=== PATIENT | female | born 1960 | race African-American/Black ===

== ENCOUNTER 2018-08-24 13:21 | Emergency (ER) | payer BC ==
[2018-08-24] MEDS ORDERED: DEXAMETHASONE 10 MG/ML VIAL ONE (13:49)
[2018-08-24] MEDS ORDERED: DIPHENHYDRAMINE 50 MG/ML VIAL ONE (13:49)
[2018-08-24] MEDS ORDERED: FAMOTIDINE 20 MG/2 ML VIAL IV ONE (13:50)
--- NOTE | 2018-08-24 15:51 | ER ---
Nurse's Notes [facility] Name: aMren Saleh Age: 58 yrs Sex: Female : 1960 Arrival Date: 08/24/2018 Time: 13:24 Bed 13 Private MD: Diagnosis: Allergy to other foods Presentation: 08/24 13:30 Presenting complaint: Patient states: I had some stuffed crab about two days ago, then sg my face broke out in a rash and now my hands are swollen and painful. Transition of care: patient was not received from another setting of care. Onset: The symptoms/episode began/occurred gradually. Anaphylaxis evaluation, the patient reports or I have noted the following symptoms which indicate a significant risk of anaphylaxis:. Onset of symptoms was August 24, 2018. Risk Assessment: Do you want to hurt yourself or someone else? Patient reports no desire to harm self or others. Initial Sepsis Screen: Does the patient meet any 2 criteria? No. Patient's initial sepsis screen is negative. Does the patient have a suspected source of infection? No. Patient's initial sepsis screen is negative. Care prior to arrival: None. 13:30 Method Of Arrival: Ambulatory sg 13:30 Acuity: SEAN 3 sg Historical: - Allergies: 13:31 No Known Allergies; sg - PMHx: 13:31 Hypertension; sg - Immunization history:: Adult Immunizations not up to date. - Social history:: Smoking status: Patient/guardian denies using tobacco. - Ebola Screening: : Patient negative for fever greater than or equal to 101.5 degrees Fahrenheit, and additional compatible Ebola Virus Disease symptoms Patient denies exposure to infectious person Patient denies travel to an Ebola-affected area in the 21 days before illness onset No symptoms or risks identified at this time. Screenin:30 Abuse screen: Denies threats or abuse. Nutritional screening: No deficits noted. rb1 Tuberculosis screening: No symptoms or risk factors identified. Fall Risk None identified. Assessment: 13:30 General: Appears in no apparent distress. comfortable, Behavior is calm, cooperative. rb1 Pain: Complains of pain in bilateral hands Pain currently is 8 out of 10 on a pain scale. Pain began 2-3 days ago. Neuro: Level of Consciousness is awake, alert, obeys commands, Oriented to person, place, time, situation. Cardiovascular: Capillary refill < 3 seconds is brisk in bilateral fingers. Respiratory: Airway is patent Respiratory effort is even, unlabored, Respiratory pattern is regular, symmetrical, Breath sounds are clear bilaterally. GI: No signs and/or symptoms were reported involving the gastrointestinal system. : No signs and/or symptoms were reported regarding the genitourinary system. Derm: Rash noted that is raised, on face. Musculoskeletal: Reports swelling in her face. Pt. reports that her cheeks look rae than normal. 14:30 Reassessment: Patient appears in no apparent distress at this time. No changes from rb1 previously documented assessment. 15:30 Reassessment: Patient appears in no apparent distress at this time. Patient and/or rb1 family updated on plan of care and expected duration. Pain level reassessed. Patient is alert, oriented x 3, equal unlabored respirations, skin warm/dry/pink. Patient states feeling better. Vital Signs: 13:31 Pulse 106; Resp 17; Temp 97.3; Pulse Ox 97% ; Pain 10/10; sg 14:46 BP 137 / 83; Pulse 71; Resp 16; Temp 97.4(O); Pulse Ox 97% on R/A; mh5 15:30 BP 157 / 86; Pulse 72; Resp 18; Temp 97.9(O); Pulse Ox 99% on R/A; Pain 6/10; rb1 ED Course: 13:24 Patient arrived in ED. tw3 13:29 Davion Graham PA is PHCP. [facility] 13:29 Matthew Mcdonough MD is Attending Physician. [facility] 13:30 Patient has correct armband on for positive identification. Bed in low position. Call rb1 light in reach. Side rails up X 1. Pulse ox on. NIBP on. Warm blanket given. 13:31 Triage completed. sg 13:31 Arm band placed on. sg 13:34 Radha Kwok, RN is Primary Nurse. rb1 13:44 Inserted saline lock: 22 gauge in right antecubital area, using aseptic technique. rb1 16:07 No provider procedures requiring assistance completed. IV discontinued, intact, rb1 bleeding controlled, No redness/swelling at site. Pressure dressing applied. Administered Medications: 13:45 Drug: diphenhydrAMINE 12.5 mg Route: IVP; Site: right antecubital; rb1 14:00 Follow up: Response: No adverse reaction rb1 13:45 Drug: Pepcid 20 mg Route: IVP; Site: right antecubital; rb1 14:00 Follow up: Response: No adverse reaction rb1 13:45 Drug: Decadron - Dexamethasone 10 mg Route: IVP; Site: right antecubital; rb1 14:00 Follow up: Response: No adverse reaction rb1 Outcome: 15:50 Discharge ordered by . lakeshia 16:07 Discharged to home ambulatory, with significant other. rb1 16:07 Condition: stable 16:07 Discharge instructions given to patient, Instructed on discharge instructions, follow up and referral plans. medication usage, Demonstrated understanding of instructions, follow-up care, medications, Prescriptions given X 1. 16:08 Patient left the ED. rb1 Signatures: Michael Cooley RN RN Davion Saleh PA PA jmm Barber, Rebecca, RN RN rb1 Parul Freedman 5 Allan, Jane tw3
--- NOTE | 2018-08-24 15:51 | EDPHYS ---
Physician Documentation [facility] Name: Maren Saleh Age: 58 yrs Sex: Female : 1960 Arrival Date: 08/24/2018 Time: 13:24 Bed 13 Private MD: ED Physician Matthew Mcdonough HPI: 08/24 13:32 This 58 yrs old Black Female presents to ER via Ambulatory with complaints of Allergic jmm Reaction. 13:32 The patient presents with rash. Onset: The symptoms/episode began/occurred suddenly, 9 jmm day(s) ago. Associated signs and symptoms: Pertinent positives: swelling, Pertinent negatives: shortness of breath. This is a 58 year old female with a history of htn that presents to the ED with complaints of facial rash, swelling to her hands, and pruritic rash beginning 9 days ago after eating crab. Patient states she is taking benadryl which transiently relieved symptoms. Patient denies shortness of breath, denies vomiting. . Historical: - Allergies: 13:31 No Known Allergies; sg - PMHx: 13:31 Hypertension; sg - Immunization history:: Adult Immunizations not up to date. - Social history:: Smoking status: Patient/guardian denies using tobacco. - Ebola Screening: : Patient negative for fever greater than or equal to 101.5 degrees Fahrenheit, and additional compatible Ebola Virus Disease symptoms Patient denies exposure to infectious person Patient denies travel to an Ebola-affected area in the 21 days before illness onset No symptoms or risks identified at this time. ROS: 13:32 Constitutional: Negative for fever, chills, and weight loss, Cardiovascular: Negative jmm for chest pain, palpitations, and edema, Respiratory: Negative for shortness of breath, cough, wheezing, and pleuritic chest pain. 13:32 Skin: Positive for rash. 13:32 All other systems are negative. Exam: 13:32 Constitutional: This is a well developed, well nourished patient who is awake, alert, jmm and in no acute distress. 13:32 Neck: Trachea midline, Supple Chest/axilla: Normal chest wall appearance and motion. 13:32 Head/face: papular rash noted to the forehead and chin. 13:32 ENT: no pharyngeal edema appreciated. 13:32 Cardiovascular: Rate: normal, Rhythm: regular. 13:32 Respiratory: the patient does not display signs of respiratory distress, Respirations: normal, Breath sounds: are clear throughout. 13:32 Abdomen/GI: Inspection: abdomen appears normal, Bowel sounds: normal. 13:32 Back: ROM is normal. 13:32 Musculoskeletal/extremity: ROM: intact in all extremities. 13:32 Musculoskeletal/extremity: mild swelling noted to the hands bilaterally. 13:32 Skin: papular lesions noted to the forehead and the chin. 13:32 Neuro: Orientation: appropriate for stated age, Mentation: is normal, Memory: is normal. 13:32 Psych: Behavior/mood is pleasant, cooperative. Vital Signs: 13:31 Pulse 106; Resp 17; Temp 97.3; Pulse Ox 97% ; Pain 10/10; sg 14:46 BP 137 / 83; Pulse 71; Resp 16; Temp 97.4(O); Pulse Ox 97% on R/A; mh5 15:30 BP 157 / 86; Pulse 72; Resp 18; Temp 97.9(O); Pulse Ox 99% on R/A; Pain 6/10; rb1 MDM: 13:32 Patient medically screened. [facility] 15:48 Data reviewed: vital signs, nurses notes. Counseling: I had a detailed discussion with lakeshia the patient and/or guardian regarding: the historical points, exam findings, and any diagnostic results supporting the discharge/admit diagnosis, the need for outpatient follow up, to return to the emergency department if symptoms worsen or persist or if there are any questions or concerns that arise at home. ED course: Decreased swelling noted to the hands. Patient states she feels much better. No pharyngeal edema appreciated on reevaluation. Patient is advised to follow up with PCP for reevaluation. patient was otherwise given strict return precautions. Patient understood and agrees with the plan of care. . 18 13:33 Order name: Saline Lock; Complete Time: 13:53 [facility] Administered Medications: 13:45 Drug: diphenhydrAMINE 12.5 mg Route: IVP; Site: right antecubital; rb1 14:00 Follow up: Response: No adverse reaction rb1 13:45 Drug: Pepcid 20 mg Route: IVP; Site: right antecubital; rb1 14:00 Follow up: Response: No adverse reaction rb1 13:45 Drug: Decadron - Dexamethasone 10 mg Route: IVP; Site: right antecubital; rb1 14:00 Follow up: Response: No adverse reaction rb1 Disposition: 16:15 Co-signature as Attending Physician, Matthew Mcdonough MD. Disposition: 08/24/18 15:50 Discharged to Home. Impression: Allergy to other foods. - Condition is Stable. - Discharge Instructions: Allergies, Adult. - Prescriptions for Prednisone 20 mg Oral Tablet - take 3 tablet by ORAL route once daily for 5 days; 15 tablet. - Medication Reconciliation Form, Thank You Letter, Antibiotic Education, Prescription Opioid Use form. - Follow up: Private Physician; When: 2 - 3 days; Reason: Recheck today's complaints, Continuance of care, Re-evaluation by your physician. Signatures: Michael Cooley RN RN Davion Saleh PA PA jmm Barber, Rebecca, RN RN rb1 Sharonda, MD GILMA Castro Corrections: (The following items were deleted from the chart) 16:08 15:50 08/24/2018 15:50 Discharged to Home. Impression: Allergy to other foods. rb1 Condition is Stable. Forms are Medication Reconciliation Form, Thank You Letter, Antibiotic Education, Prescription Opioid Use. Follow up: Private Physician; When: 2 - 3 days; Reason: Recheck today's complaints, Continuance of care, Re-evaluation by your physician. lakeshia
== END 2018-08-24 16:08 | disposition home or self-care (01) ==
LOC: ER 13:21
DX: R21 Rash and other nonspecific skin eruption (principal); I10 Essential (primary) hypertension; Z91.018 Allergy to other foods
CPT/HCPCS: 96374; 96375; 99284; J1100

== ENCOUNTER 2024-03-19 10:40 | Emergency (ER) | payer BC, OTHER ==
--- OUTSIDE RECORDS SUMMARY | 2024-03-19 10:44 | XMS REPORT | Continuity of Care Document ---
Author Name Unknown Address [address] [facility] [address] [place] [address] [facility] thconnect Address [address] [facility] [address] [place] [address] Care Team Providers Care Arborist Climber Name Role Phone MARITZA TANNER Primary Care Physician SALLY Chun Attending Clinician Unavailable SALLY POZO Attending Clinician Unavailable SCARLET BARBOSA Attending Clinician Unavailable SCARLET BARBOSA Attending Clinician Unavailable TACHO HAIR Attending Clinician Unavailab MARITZA Shepard Attending Clinician UnavailMARITZA Holt Attending Clinician UnavailTAMMY Harmon Attending Clinician UnavailMaritza Rodriguez MD Attending Clinician [phone] Linda Perez MD Attending Clinician [phone] LINDA PEREZ Attending Clinician Unavailable GISELLE ALICIA Attending Clinician Unavaila GISELLE Chao Attending Clinician Unavaila Shruthi Davison Attending Clinician Karolina Isabel Attending Clinician [phone] Sally Pozo MD Attending Clinician 2, [facility] Attending Clinician Unavailable 2, [facility] Attending Clinician Unavailable Doctor Unassigned, [place] Attending Clinician U WILLIAM Barrera Attending Clinician Unavailable MARCY REEVES Attending Clinician Unavailarron escalante Payers Payer Name Policy Type Policy Number Effective Date Expirati on Date Source [employer] MEDICARE ADVANTAGE [id number] 2024 00:00:00 [facility] OUT OF STATE [id number] 2018 00:00:00 Problems Condition Name Condition Details Condition Category Status Onset Date Resolution Date Last Treatment Date Treating Clinician Comments Source At risk for falls At risk for falls Disease Active 2023-04 00:00: 00 [facility] Unspecifie d abnormalit ies of gait and mobility Unspecifie d abnormalit ies of gait and mobility Disease Active 2023-04 00:00: 00 [facility] Preop cardiovasc ular exam Preop cardiovasc ular exam Disease Active 2023-04 00:00: 00 [facility] Morbid obesity Morbid obesity Disease Active 2023-04 00:00: 00 [facility] Hyperlipid emia, unspecifie d hyperlipid emia type Hyperlipid emia, unspecifie d hyperlipid emia type Disease Active 2023-04 00:00: 00 [facility] Family history of early CAD Family history of early CAD Disease Active 2023-04 00:00: 00 [facility] Edema, unspecifie d type Edema, unspecifie d type Disease Active 2023-04 00:00: 00 [facility] Snores Snores Disease Active 2023-04 00:00: 00 [facility] Hip pain Hip Pain Problem Active 11-15 00:00: 00 [facility] Bilateral hip joint pain Bilateral Hip Joint Pain Problem Active 11-15 00:00: 00 [facility] Encounter for screening mammogram for malignant neoplasm of breast Encounter for screening mammogram for malignant neoplasm of breast Disease Active 12-04 00:00: 00 [facility] Peanut allergy Peanut allergy Disease Active 10-31 00:00: 00 [facility] Gout Gout Disease Active 10-14 00:00: 00 [facility] 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 Active 10-14 00:00: 00 [facility] Hyperchole sterolemia Hyperchole sterolemia Disease Active 10-14 00:00: 00 [facility] Anemia Anemia Disease Active 10-14 00:00: 00 [facility] Shellfish allergy Shellfish allergy Disease Active 10-10 00:00: 00 [facility] Essential hypertensi on Essential hypertensi on Disease Active [facility] Prediabete s Prediabete s Disease Active [facility] Allergies, Adverse Reactions, Alerts Allergy Name Allergy Type Status Severity Reaction(s) Onset Date Inactive Date Treating Clinician Comments Source Peanut Propensi ty to adverse reaction s Active Rash 10-31 00:00: 00 [facility] PEANUT DRUG INGREDI Active Rash 10-31 00:00: 00 [facility] Shellfis h Derived Propensi ty to adverse reaction s Active Unknown - See comments 10-10 00:00: 00 [facility] SHELLFIS H DERIVED DRUG INGREDI Active Unknown-Cmnt 10-10 00:00: 00 [facility] Social History Social Habit Start Date Stop Date Quantity Comments Source Gender identity [facility] Sexual orientation [facility] Alcoholic beverage intake 2024-02-28 00:00:00 2024-02-28 00:00:00 Lifetime non-drinker (finding) [facility] Alcohol intake 2022-12-18 00:00:00 2022-12-18 00:00:00 Lifetime non-drinker (finding) [facility] Tobacco use and exposure 2022-12-04 00:00:00 2022-12-04 00:00:00 Smokeless tobacco non-user [facility] History of Social function 2022-12-04 00:00:00 2022-12-04 00:00:00 [facility] Sex assigned at 1960 00:00:00 1960 00:00:00 [facility] Smoking Status Start Date Stop Date Source Never smoked tobacco [facility] Medications Ordered Medication Name Filled Medication Name Start Date Stop Date Current Medication? Ordering Clinician Indication Dosage Frequency Signature (SIG) Comments Components Source allopurinoL 100 mg tablet 2023-04 00:00: 00 Yes [id number] 100mg Take 1 tablet by mouth in the morning. [facility] Nitrofurant oin&Nit. Macrocryst 100 mg capsule 2023-04 00:00: 00 03-09 05:59 :00 Yes [id number] 100mg Take 1 capsule by mouth in the morning and 1 capsule in the evening. Do all this for 5 days. [facility] nystatin 100,000 unit/gram powder 2023-04 00:00: 00 Yes [id number] Apply to area(s) 2 (two) times daily. [facility] rosuvastati n 20 mg tablet 2023-04 00:00: 00 Yes [id number] 20mg Take 1 tablet by mouth in the morning. [facility] amLODIPine 10 mg tablet 12-18 00:00: 00 Yes [id number] 10mg Take 1 tablet by mouth in the morning. [facility] allopurinoL 100 mg tablet 12-18 00:00: 00 03-03 00:00 :00 No [id number] 100mg Take 1 tablet by mouth in the morning. [facility] rosuvastati n 20 mg tablet 12-18 00:00: 00 02-27 00:00 :00 No [id number] 20mg Take 1 tablet by mouth in the morning. [facility] benzonatate (TESSALON PERLES) 100 mg capsule 12-18 00:00: 00 02-27 00:00 :00 No [id number] 100mg Take 1 capsule by mouth every 8 (eight) hours as needed for Cough. [facility] EPINEPHrine 0.3 mg/0.3 mL injection 12-04 08:15: 20 Yes epinephrin e 0.3 mg/0.3 mL injection, auto-injec tor [facility] EPINEPHrine 0.3 mg/0.3 mL injection 2018-04 13:41: 17 Yes epinephrin e 0.3 mg/0.3 mL injection, auto-injec [facility] lisinopril 20 mg tablet 2018-04 00:00: 00 Yes [id number] 20mg Take 1 tablet by mouth daily. [facility] betamethaso ne dipropionat e 0.05 % cream 2018-04 00:00: 00 02-27 00:00 :00 No [id number] Apply to area(s) 2 (two) times daily. [facility] allopurinol 100 mg tablet 2018-04 00:00: 00 12-18 00:00 :00 No [id number] 100mg Take 1 tablet by mouth daily. [facility] amlodipine 5 mg tablet TAKE ONE (1) TABLET BY MOUTH IN THE MORNING. amlodipine 5 mg tablet TAKE ONE (1) TABLET BY MOUTH IN THE MORNING. No amlodipine 5 mg tablet TAKE ONE (1) TABLET BY MOUTH IN THE MORNING. [facility] doxycycline hyclate 100 mg tablet TAKE ONE (1) TABLET BY MOUTH IN THE MORNING AND 1 TABLET IN THE EVENING. DO ALL THIS FOR 7 DAYS. doxycycline hyclate 100 mg tablet TAKE ONE (1) TABLET BY MOUTH IN THE MORNING AND 1 TABLET IN THE EVENING. DO ALL THIS FOR 7 DAYS. No doxycyclin e hyclate 100 mg tablet TAKE ONE (1) TABLET BY MOUTH IN THE MORNING AND 1 TABLET IN THE EVENING. DO ALL THIS FOR 7 DAYS. [facility] metformin ER 500 mg tablet,exte nded release 24 hr TAKE TWO (2) TABLETS BY MOUTH AT BEDTIME FOR 7 DAYS, THEN 2 TABLETS 2 (TWO) TIMES DAILY FOR 90 DAYS. metformin ER 500 mg tablet,exte nded release 24 hr TAKE TWO (2) TABLETS BY MOUTH AT BEDTIME FOR 7 DAYS, THEN 2 TABLETS 2 (TWO) TIMES DAILY FOR 90 DAYS. No metformin ER 500 mg tablet,ext ended release 24 hr TAKE TWO (2) TABLETS BY MOUTH AT BEDTIME FOR 7 DAYS, THEN 2 TABLETS 2 (TWO) TIMES DAILY FOR 90 DAYS. [facility] prednisone 20 mg tablet TAKE 2 TABLETS BY MOUTH IN THE MORNING FOR 5 DAYS. prednisone 20 mg tablet TAKE 2 TABLETS BY MOUTH IN THE MORNING FOR 5 DAYS. No prednisone 20 mg tablet TAKE 2 TABLETS BY MOUTH IN THE MORNING FOR 5 DAYS. [facility] rosuvastati n 5 mg tablet TAKE ONE (1) TABLET BY MOUTH IN THE MORNING. rosuvastati n 5 mg tablet TAKE ONE (1) TABLET BY MOUTH IN THE MORNING. No rosuvastat in 5 mg tablet TAKE ONE (1) TABLET BY MOUTH IN THE MORNING. [facility] Immunizations Ordered Immunization Name Filled Immunization Name Date Status Comments Source Pneumococcal 20 Conjugate, PCV20 (Prevnar 20) 2024-02-28 00:00:00 Completed [facility] Influenza, adjuvanted, trivalent, PF (FLUAD) 2024-02-28 00:00:00 Completed SARS-COV-2 COVID-19 BELEN/J&J VACCINE 2020-07-03 00:00:00 Completed [facility] SARS-COV-2 COVID-19 BELEN/J&J VACCINE 2020-07-03 00:00:00 Completed [facility] SARS-COV-2 COVID-19 BELEN/J&J VACCINE 2020-07-03 00:00:00 Completed [facility] SARS-COV-2 COVID-19 BELEN/J&J VACCINE 2020-07-03 00:00:00 Completed [facility] SARS-COV-2 COVID-19 BELEN/J&J VACCINE 2020-07-03 00:00:00 Completed [facility] SARS-COV-2 COVID-19 BELEN/J&J VACCINE 2020-07-03 00:00:00 Completed [facility] Vital Signs Vital Name Observation Time Observation Value Comments S jennie Systolic blood pressure 2024-02-28 19:43:00 137 mm[Hg] [facility] Diastolic blood pressure 2024-02-28 19:43:00 73 mm[Hg] [facility] Heart rate 2024-02-28 19:43:00 76 /min [facility] Respiratory rate 2024-02-28 19:43:00 16 /min [facility] Body height 2024-02-28 19:43:00 162.6 cm [facility] Body weight 2024-02-28 19:43:00 129.729 kg [facility] BMI 2024-02-28 19:43:00 49.09 kg/m2 [facility] Oxygen saturation in Arterial blood by Pulse oximetry 2024-02-28 19:43:00 100 /min [facility] Systolic blood pressure 2024-02-28 16:59:00 139 mm[Hg] [facility] Diastolic blood pressure 2024-02-28 16:59:00 74 mm[Hg] [facility] Heart rate 2024-02-28 16:59:00 92 /min [facility] Body temperature 2024-02-28 16:59:00 36.44 [place] [facility] Respiratory rate 2024-02-28 16:59:00 18 /min [facility] Body height 2024-02-28 16:59:00 157.5 cm [facility] Systolic blood pressure 2024-02-28 14:50:00 139 mm[Hg] [facility] Diastolic blood pressure 2024-02-28 14:50:00 74 mm[Hg] [facility] Heart rate 2024-02-28 14:47:00 92 /min [facility] Body temperature 2024-02-28 14:47:00 36.72 [place] [facility] Respiratory rate 2024-02-28 14:47:00 18 /min [facility] Body height 2024-02-28 14:47:00 157.5 cm [facility] Oxygen saturation in Arterial blood by Pulse oximetry 2024-02-28 14:47:00 100 /min [facility] Body Weight 2023-11-16 00:00:00 184 [lb_av] [facility] Height 2023-11-16 00:00:00 63 [in_i] [facility] BMI (Body Mass Index) 2023-11-16 00:00:00 32.6 kg/m2 [facility] Systolic blood pressure 2022-12-18 14:03:00 175 mm[Hg] [facility] Diastolic blood pressure 2022-12-18 14:03:00 100 mm[Hg] [facility] Heart rate 2022-12-18 14:03:00 100 /min [facility] Body temperature 2022-12-18 13:58:00 36.28 [place] [facility] Respiratory rate 2022-12-18 13:58:00 20 /min [facility] Body height 2022-12-18 13:58:00 160 cm [facility] Body weight 2022-12-18 13:58:00 103.375 kg [facility] BMI 2022-12-18 13:58:00 40.37 kg/m2 [facility] Oxygen saturation in Arterial blood by Pulse oximetry 2022-12-18 13:58:00 98 /min [facility] Systolic blood pressure 2022-12-04 13:17:00 155 mm[Hg] [facility] Diastolic blood pressure 2022-12-04 13:17:00 102 mm[Hg] [facility] Heart rate 2022-12-04 13:15:00 97 /min [facility] Body temperature 2022-12-04 13:15:00 36.56 [place] [facility] Body height 2022-12-04 13:15:00 157.5 cm [facility] Body weight 2022-12-04 13:15:00 106.278 kg [facility] BMI 2022-12-04 13:15:00 42.85 kg/m2 [facility] Oxygen saturation in Arterial blood by Pulse oximetry 2022-12-04 13:15:00 97 /min [facility] Procedures Procedure Date / Time Performed Performing Clinician Source TRANSTHORACIC ECHO (TTE) COMPLETE 2024-03-13 22:18:03 Linda Perez [facility] DEXA PERIPHERAL (FOREARM) 2024-03-13 20:23:06 Maritza Tanner [facility] DEXA AXIAL (HIP AND SPINE) 2024-03-13 20:23:06 [facility] 2024-03-01 03:00:00 Noemí Tanner [facility] HB ECG ROUTINE & RHYTHM STRIP 2024-02-28 19:47:18 Linda Perez [facility] PNEUMOCOCCAL 20 CONJUGATE (PREVNAR 20) VACCINE 2024-02-28 15:41:[address] [facility] FLU VACC(),65+YR,0. 5 ML,IM,ADJUVANTED,TIV(FLU AD) 2024-02-28 15:41:[address] [facility] XR, knee, 4 or more view 2023-11-16 00:00:00 [facility] XR, hip + pelvis, bilateral, 3 or 4 view 2023-11-16 00:00:00 [facility] MICROALBUMIN URINE 2022-12-05 18:15:00 Noemí Tanner jayme [facility] URIC ACID 2022-12-04 14:24:00 Maritza Tanner Un [facility] FREE T4 2022-12-04 14:24:00 Maritza Tanner [facility] THYROID STIMULATING HORMONE 2022-12-04 14:24:[address] [facility] COMP. METABOLIC PANEL (14686) 2022-12-04 14:24:[address] [facility] LIPID PANEL ([id number])(TOTAL CHOLESTEROL, TRIGLYCERIDES, HDL) 2022-12-04 14:24[facility] 2022-12-04 14:24:00 Noemí Tanner [facility] CBC WITH DIFF 2022-12-04 14:24:00 Maritza Tanner [facility] GLYCOSYLATED HEMOGLOBIN (A1C) 2022-12-04 14:24:00 Maritza Tanner [facility] FREE T3 2022-12-04 14:24:00 [facility]/2 AG-AB WITH REFLEX 2022-12-04 14:24:00 ObMaritza Hensley [facility] ASSIGNMENT OF BENEFITS 2022-12-04 13:05:07 Docto r Unassigned, [place] [facility] Encounters Start Date/Time End Date/Time Encounter Type Admission Type Attending [facility] Facility Care Department Encounter ID Source 2025-03-02 10:30:00 2025-03-02 10:30:00 Outpatient R SALLY POZO VIEN [facility] [id number] [facility] 2024-04-03 10:00:00 2024-04-03 10:00:00 Outpatient TACHO THOMAS [facility] [id number] [facility] 2024-03-25 11:20:00 2024-03-25 11:20:00 Outpatient R MARITZA TANNER UZOMA [facility] [id number] [facility] 2024-03-21 09:30:00 2024-03-21 09:30:00 Outpatient TAMMY AGUILAR [facility] [id number] [facility] 2024-03-19 09:00:00 2024-03-19 09:00:00 Outpatient SCARLET ROMERO ELISHA [facility] [id number] [facility] 2024-03-17 00:00:00 2024-03-18 07:55:22 Telephone [facility] 1.2.840.114 350.1.13.10 4.2.7.2.686 [id number] [facility] 2024-03-13 15:07:03 2024-03-13 23:59:00 Hospital Encounter Linda Perez [facility] 1.2.840.114 350.1.13.10 4.2.7.2.686 [id number] [facility] 2024-03-13 13:43:44 2024-03-13 15:06:00 Hospital Encounter Shellie [facility] 1.2.840.114 350.1.13.10 4.2.7.2.686 [id number] [facility] 2024-03-13 13:42:42 2024-03-13 13:42:42 Hospital Encounter Shellie [facility] 1.2.840.114 350.1.13.10 4.2.7.2.686 [id number] [facility] 2024-03-13 13:00:00 2024-03-13 13:00:00 Outpatient R GISELLE ALICIA [facility] [id number] [facility] 2024-03-12 14:00:00 2024-03-12 14:00:00 [facility] [id number] 2024-03-10 00:00:00 2024-03-11 10:36:30 Patient Outreach Shruthi Buckley Jocelyn [facility] 1.2.840.114 350.1.13.10 4.2.7.2.686 [id number] [facility] 2024-03-04 13:00:00 2024-03-04 13:00:00 Outpatient R GISELLE ALICIA [facility] [id number] [facility] 2024-03-03 00:00:00 2024-03-03 08:19:39 [facility] 1.2.840.114 350.1.13.10 4.2.7.2.686 [id number] [facility] 2024-02-29 15:30:00 2024-02-29 15:30:00 Outpatient Rian BARBOSA, SCARLETMIRELLA BARBOSA, SCARLET [facility] [id number] [facility] 2024-02-29 00:00:00 2024-02-29 14:12:26 Telephone Rashida Perezjermain [facility] 1.2.840.114 350.1.13.10 4.2.7.2.686 [id number] [facility] 2024-02-29 00:00:00 2024-02-29 11:02:48 Case Management Karolina White Katherine [facility] 1.2.840.114 350.1.13.10 4.2.7.2.686 [id number] [facility] 2024-02-28 14:30:00 2024-02-28 23:59:00 Hospital Encounter Rashida Perezabbeyjermain [facility] 1.2.840.114 350.1.13.10 4.2.7.2.686 [id number] [facility] 2024-02-28 13:40:00 2024-02-28 14:06:05 Office Visit Rashida Perezabbeyjermain [facility] 1.2.840.114 350.1.13.10 4.2.7.2.686 [id number] [facility] 2024-02-28 10:30:00 2024-02-28 11:59:41 Office Visit Sally Pozo [facility] 1.2.840.114 350.1.13.10 4.2.7.2.686 [id number] [facility] 2024-02-28 10:15:00 2024-02-28 10:30:00 Kettle Tender Visit 2, [facility] Maritza Tanner 2, Adc Lab [facility] 1.2.840.114 350.1.13.10 4.2.7.2.686 [id number] [facility] 2024-02-28 08:00:00 2024-02-28 09:59:44 Outpatient R OBI-BARBARA MARITZA OBI-BARBARA MARITZA [facility] [id number] [facility] 2024-02-28 08:00:00 2024-02-28 09:59:44 Office Visit Maritza Tanner [facility] 1.2.840.114 350.1.13.10 4.2.7.2.686 [id number] [facility] 2024-01-31 10:40:00 2024-01-31 10:40:00 Outpatient R OBI-BARBARAMARITZA Santana OBI-BARBARA MARITZA [facility] [id number] [facility] 2023-11-16 00:00:00 2023-11-16 00:00:00 Mojgan Shore MD: [address] [place] [address] , Ph. [phone] [facility] - [facility] [id number] [facility] 2022-12-18 08:40:00 2022-12-18 09:46:04 Outpatient R OBI-BARBARA MARITZA OBI-BARBARA MARITZA [facility] [id number] [facility] 2022-12-18 08:40:00 2022-12-18 09:46:04 Office Visit Obzita-Barbara , [facility] 1.2.840.114 350.1.13.10 4.2.7.2.686 [id number] [facility] 2022-12-05 13:00:00 2022-12-05 13:11:00 Outpatient R OBZita-MARITZA JIMENEZ OBI-BARBARA [facility] [id number] [facility] 2022-12-05 13:00:00 2022-12-05 13:11:00 Kettle Tender Visit 2, Adc Lab Kathryn [facility] BU[facility] 1.2.840.114 350.1.13.10 4.2.7.2.686 [id number] [facility] 2022-12-04 09:00:00 2022-12-04 09:53:30 Kettle Tender Visit 2, Adc Lab Kathryn [facility] BU[facility] 1.2.840.114 350.1.13.10 4.2.7.2.686 [id number] [facility] 2022-12-04 08:00:00 2022-12-04 08:52:25 Outpatient R MARITZA TANNER [facility] [id number] [facility] 2022-12-04 08:00:00 2022-12-04 08:52:25 Office Visit Kathryn [facility] 1.2.840.114 350.1.13.10 4.2.7.2.686 [id number] [facility] 2022-12-04 00:00:00 2022-12-04 00:00:00 Orders Only Doctor Unassigned, [place] [facility] 1.284.114 350.1.13.10 4.2.7.2.686 [id number] [facility] 2020-07-03 09:00:00 2020-07-03 09:00:00 Outpatient Rian ROMERO [facility] [id number] [facility] 2019-09-22 09:30:00 2019-09-22 09:30:00 Outpatient MARCY HAMPTON [facility] [id number] [facility] Results Test Description Test Time Test Comments Results Result Co mments Source [facility]A1C)2022-12-04 18:13:57* Test Item Value Reference Range Interpretation Comme nts HGB A1C (test code = 4548-4) 6.8 % 4.0-5.7 H [place] (test code = [place]) Reference RangesNormal: <5.7%Prediabetes: 5.7 - 6.4%Diabetes: > 6.5% Lab Interpretation (test code = 54914-5) Abnormal [facility]A1C)2022-12-04 18:13:57* Test Item Value Reference Range Interpretation Comme nts HGB A1C (test code = 4548-4) 6.8 % 4.0-5.7 H [place] (test code = [place]) Reference RangesNormal: <5.7%Prediabetes: 5.7 - 6.4%Diabetes: > 6.5% Lab Interpretation (test code = 16703-4) [facility]normal [facility] AG-AB WITH [id number] 17:06:02* Test Item Value Reference Range Interpretation Comme nts HIV Semi-quantitative (test code = 13030-1) 0.08 Negative [place] (test code = [place]) Non-reactive for HIV-1 antigen and HIV-1/HIV-2 antibodies. ?No laboratory evidence of HIV infection. ?Repeat in 2-4 weeks if acute HIV infection is suspected. [facility] 1/2 AG-AB WITH [id number] 17:06:02* Test Item Value Reference Range Interpretation Comme nts HIV Semi-quantitative (test code = 52994-0) 0.08 Negative [place] (test code = [place]) Non-reactive for HIV-1 antigen and HIV-1/HIV-2 antibodies. ?No laboratory evidence of HIV infection. ?Repeat in 2-4 weeks if acute HIV infection is suspected. [facility] [id number] 16:56:42 * Test Item Value Reference Range Interpretation Comme nts TSH (test code = 2066281464) 1.53 See_Comment [Automated messa ge] The system which generated this result transmitted reference range: 0.45 - 4.70 mIU/L. The reference range was not used to interpret this result as normal/abnormal. Lab Interpretation (test code = 60472-0) [facility] [id number] 16:56:42 * Test Item Value Reference Range Interpretation Comme nts TSH (test code = 6570376367) 1.53 See_Comment [Automated messa ge] The system which generated this result transmitted reference range: 0.45 - 4.70 mIU/L. The reference range was not used to interpret this result as normal/abnormal. Lab Interpretation (test code = 65624-5) Normal [facility] [id number] 16:42:59* Test Item Value Reference Range Interpretation Comme nts FREE T4 (test code = 5336409499) 0.42 See_Comment L [Automated messa ge] The system which generated this result transmitted reference range: 0.78 - 2.20 ng/dL:. The reference range was not used to interpret this result as normal/abnormal. Lab Interpretation (test code = 21621-0) Abnormal [facility] [id number] 16:42:59* Test Item Value Reference Range Interpretation Comme nts FREE T4 (test code = 7942392245) 0.42 See_Comment L [Automated messa ge] The system which generated this result transmitted reference range: 0.78 - 2.20 ng/dL:. The reference range was not used to interpret this result as normal/abnormal. Lab Interpretation (test code = 05232-6) Abnormal [facility] [id number] 16:42:39* Test Item Value Reference Range Interpretation Comme nts FREE T3 (test code = 4968079487) 3.28 pg/mL 2.77-5.27 Lab Interpretation (test cod e = 51681-2) Normal [facility] [id number] 16:42:39* Test Item Value Reference Range Interpretation Comme nts FREE T3 (test code = 1593131559) 3.28 pg/mL 2.77-5.27 Lab Interpretation (test cod e = 36340-6) Normal [facility] [id number] 16:41:36* Test Item Value Reference Range Interpretation Comme nts ESR (test code = 87190-8) 30 See_Comment H [Automated messa ge] The system which generated this result transmitted reference range: 0 - 20 mm/HR. The reference range was not used to interpret this result as normal/abnormal. Lab Interpretation (test code = 06970-7) Abnormal [facility] [id number] 16:41:36* Test Item Value Reference Range Interpretation Comme nts ESR (test code = 34387-2) 30 See_Comment H [Automated messa ge] The system which generated this result transmitted reference range: 0 - 20 mm/HR. The reference range was not used to interpret this result as normal/abnormal. Lab Interpretation (test code = 49880-0) [facility]normal [facility] (70018)(TOTAL CHOLESTEROL, TRIGLYCERIDES, HDL)2022-12-04 16:26:56* Test Item Value Reference Range Interpretation Comme nts CHOL (test code = 0551369469) 234 mg/dL 120-200 H HDL (test code = 3229641699) 37 mg/dL >=50 L HDLC RATIO (test code = 8146697313) 6.3 <=4.5 H TRIG (test code = 8807915065) 152 mg/dL 30-170 LDL CHOL (test code = 79433-4) 167 mg/dL <=160 H VLDL (test code = 2847791758) 30 mg/dL 5-60 Lab Interpretation (test cod e = 92166-5) [facility]normal [facility] (53261)(TOTAL CHOLESTEROL, TRIGLYCERIDES, HDL)2022-12-04 16:26:56* Test Item Value Reference Range Interpretation Comme nts CHOL (test code = 7561889790) 234 mg/dL 120-200 H HDL (test code = 7077209969) 37 mg/dL >=50 L HDLC RATIO (test code = 2039461680) 6.3 <=4.5 H TRIG (test code = 9615358010) 152 mg/dL 30-170 LDL CHOL (test code = 97438-6) 167 mg/dL <=160 H VLDL (test code = 1986385079) 30 mg/dL 5-60 Lab Interpretation (test cod e = 51908-1) Abnormal [facility] METABOLIC PANEL (40786)2022-12-04 16:26:36* Test Item Value Reference Range Interpretation Comme nts NA (test code = 6462505615) 140 mmol/L 135-145 K (test code = 7574656844) 4.3 mmol/L 3.5-5.0 CL (test code = 3103330660) 105 mmol/L 98-108 CO2 TOTAL (test code = 4060487536) 26 mmol/L 23-31 AGAP (test code = 9922007270) 9 2-16 BUN (test code = 6874398652) 16 mg/dL 7-23 GLUCOSE (test code = 3788249640) 140 mg/dL 70-110 H CREATININE (test code = 2987747628) 0.88 mg/dL 0.50-1.04 TOTAL BILI (test code = 7193263935) 0.3 mg/dL 0.1-1.1 CALCIUM (test code = 6415055319) 9.9 mg/dL 8.6-10.6 T PROTEIN (test code = 6611801197) 7.8 g/dL 6.3-8.2 ALBUMIN (test code = 3591607601) 4.5 g/dL 3.5-5.0 ALK PHOS (test code = 3916153262) 63 U/L 34-122 ALTv (test code = 1742-6) 30 U/L 5-35 AST(SGOT) (test code = 8468783687) 37 U/L 13-40 eGFR (test code = 9113349342) 64.7 mL/min/1.73m2 [place] (test code = [place]) Association of Glomerular Filtration Rate (GFR) and Staging of Kidney Disease* + --+ --+ ------+| GFR (mL/min/1.73 m2) ?| With Kidney Damage ?| ?Without Kidney Damage+ --------+ --------+ +| ?>90 ?| ?Stage one ?| ? Normal ?+ ---+ ---+ -------+| ?60-89 ?| ?Stage two ?| ? Decreased GFR ? + --+ --+ ------+| ?30-59 ?| ?Stage three ?| ? Stage three ? + --+ --+ ------+| ?15-29 ?| ?Stage four ? | ? Stage four ?+ ---+ ---+ -------+| ?<15 (or dialysis) ? ?| ?Stage five ? | ? Stage five ?+ ---+ ---+ -------+ *Each stage assumes the associated GFR level has been in effect for at least three months. ?Stages 1 to 5, with or without kidney disease, indicate chronic kidney disease. Notes: Determination of stages one and two (with eGFR >59mL/min/1.73 m2) requires estimation of kidney damage for at least three months as defined by structural or functional abnormalities of the kidney, manifested by either:Pathological abnormalities or Markers of kidney damage (including abnormalities in the composition of the blood or urine or abnormalities in imaging tests). Lab Interpretation (test code = 66728-5) Abnormal [facility] METABOLIC PANEL (24935)2022-12-04 16:26:36* Test Item Value Reference Range Interpretation Comme nts NA (test code = 5312271353) 140 mmol/L 135-145 K (test code = 9748585846) 4.3 mmol/L 3.5-5.0 CL (test code = 0298613147) 105 mmol/L 98-108 CO2 TOTAL (test code = 8971384467) 26 mmol/L 23-31 AGAP (test code = 4346093250) 9 2-16 BUN (test code = 8847591687) 16 mg/dL 7-23 GLUCOSE (test code = 4017996300) 140 mg/dL 70-110 H CREATININE (test code = 5458177889) 0.88 mg/dL 0.50-1.04 TOTAL BILI (test code = 5221395755) 0.3 mg/dL 0.1-1.1 CALCIUM (test code = 4496342671) 9.9 mg/dL 8.6-10.6 T PROTEIN (test code = 4657642918) 7.8 g/dL 6.3-8.2 ALBUMIN (test code = 3016325340) 4.5 g/dL 3.5-5.0 ALK PHOS (test code = 7540319702) 63 U/L 34-122 ALTv (test code = 1742-6) 30 U/L 5-35 AST(SGOT) (test code = 2563336643) 37 U/L 13-40 eGFR (test code = 0600513696) 64.7 mL/min/1.73m2 [place] (test code = [place] Association of Glomerular Filtration Rate (GFR) and Staging of Kidney Disease* + --+ --+ ------+| GFR (mL/min/1.73 m2) ?| With Kidney Damage ?| ?Without Kidney Damage+ --------+ --------+ +| ?>90 ?| ?Stage one ?| ? Normal ?+ ---+ ---+ -------+| ?60-89 ?| ?Stage two ?| ? Decreased GFR ? + --+ --+ ------+| ?30-59 ?| ?Stage three ?| ? Stage three ? + --+ --+ ------+| ?15-29 ?| ?Stage four ? | ? Stage four ?+ ---+ ---+ -------+| ?<15 (or dialysis) ? ?| ?Stage five ? | ? Stage five ?+ ---+ ---+ -------+ *Each stage assumes the associated GFR level has been in effect for at least three months. ?Stages 1 to 5, with or without kidney disease, indicate chronic kidney disease. Notes: Determination of stages one and two (with eGFR >59mL/min/1.73 m2) requires estimation of kidney damage for at least three months as defined by structural or functional abnormalities of the kidney, manifested by either:Pathological abnormalities or Markers of kidney damage (including abnormalities in the composition of the blood or urine or abnormalities in imaging tests). Lab Interpretation (test code = 87043-2) [facility] [id number] 16:26:15* Test Item Value Reference Range Interpretation Comme nts URIC ACID (test code = 7669946428) 7.9 mg/dL 2.9-6.0 H Lab Interpretation (test cod e = 67902-0) Abnormal [facility] [id number] 16:26:15* Test Item Value Reference Range Interpretation Comme nts URIC ACID (test code = 4112715809) 7.9 mg/dL 2.9-6.0 H Lab Interpretation (test cod e = 93667-6) Abnormal [facility] WITH [id number] 16:12:54* Test Item Value Reference Range Interpretation Comme nts WBC (test code = 6690-2) 6.20 See_Comment [Automated messa ge] The system which generated this result transmitted reference range: 4.30 - 11.10 10*3/?L. The reference range was not used to interpret this result as normal/abnormal. RBC (test code = 789-8) 3.81 See_Comment L [Automated messa ge] The system which generated this result transmitted reference range: 3.93 - 5.25 10*6/?L. The reference range was not used to interpret this result as normal/abnormal. HGB (test code = 718-7) 12.0 g/dL 11.6-15.0 HCT (test code = 4544-3) 35.6 % 35.7-45.2 L MCV (test code = 787-2) 93.4 fL 80.6-95.5 MCH (test code = 785-6) 31.5 pg 25.9-32.8 MCHC (test code = 786-4) 33.7 g/dL 31.6-35.1 RDW-SD (test code = 71764-2) 42.3 fL 39.0-49.9 RDW-CV (test code = 788-0) 12.4 % 12.0-15.5 PLT (test code = 777-3) 217 See_Comment [Automated messa ge] The system which generated this result transmitted reference range: 166 - 358 10*3/?L. The reference range was not used to interpret this result as normal/abnormal. MPV (test code = 63098-4) 11.0 fL 9.5-12.9 NRBC/100 WBC (test code = 6400675406) 0.0 See_Comment [Automated me ssage] The system which generated this result transmitted reference range: 0.0 - 10.0 /100 WBCs. The reference range was not used to interpret this result as normal/abnormal. NRBC x10^3 (test code = 7416486761) See_Comment [Automated messa ge] The system which generated this result transmitted reference range: 10*3/?L. The reference range was not used to interpret this result as normal/abnormal. GRAN MAT (NEUT) % (test code = 770-8) 53.3 % IMM GRAN % (test code = 1136740655) 0.80 % LYMPH % (test code = 736-9) 33.7 % MONO % (test code = 5905-5) 8.7 % EOS % (test code = 713-8) 2.9 % BASO % (test code = 706-2) 0.6 % GRAN MAT x10^3(ANC) (test code = 8110912051) 3.30 10*3/uL 1.88-7.09 IMM GRAN x10^3 (test code = 1373905400) 0.05 10*3/uL 0.00-0.06 LYMPH x10^3 (test code = 731-0) 2.09 10*3/uL 1.32-3.29 MONO x10^3 (test code = 742-7) 0.54 10*3/uL 0.33-0.92 EOS x10^3 (test code = 711-2) 0.18 10*3/uL 0.03-0.39 BASO x10^3 (test code = 704-7) 0.04 10*3/uL 0.01-0.07 Lab Interpretation (test code = 75009-2) Abnormal [facility] WITH [id number] 16:12:54* Test Item Value Reference Range Interpretation Comme nts WBC (test code = 6690-2) 6.20 See_Comment [Automated messa ge] The system which generated this result transmitted reference range: 4.30 - 11.10 10*3/?L. The reference range was not used to interpret this result as normal/abnormal. RBC (test code = 789-8) 3.81 See_Comment L [Automated messa ge] The system which generated this result transmitted reference range: 3.93 - 5.25 10*6/?L. The reference range was not used to interpret this result as normal/abnormal. HGB (test code = 718-7) 12.0 g/dL 11.6-15.0 HCT (test code = 4544-3) 35.6 % 35.7-45.2 L MCV (test code = 787-2) 93.4 fL 80.6-95.5 MCH (test code = 785-6) 31.5 pg 25.9-32.8 MCHC (test code = 786-4) 33.7 g/dL 31.6-35.1 RDW-SD (test code = 62620-3) 42.3 fL 39.0-49.9 RDW-CV (test code = 788-0) 12.4 % 12.0-15.5 PLT (test code = 777-3) 217 See_Comment [Automated [employer] ge] The system which generated this result transmitted reference range: 166 - 358 10*3/?L. The reference range was not used to interpret this result as normal/abnormal. MPV (test code = 88598-6) 11.0 fL 9.5-12.9 NRBC/100 WBC (test code = 4318423585) 0.0 See_Comment [Automated [employer] ssage] The system which generated this result transmitted reference range: 0.0 - 10.0 /100 WBCs. The reference range was not used to interpret this result as normal/abnormal. NRBC x10^3 (test code = 7322073565) See_Comment [Automated [employer] ge] The system which generated this result transmitted reference range: 10*3/?L. The reference range was not used to interpret this result as normal/abnormal. GRAN MAT (NEUT) % (test code = 770-8) 53.3 % IMM GRAN % (test code = 9978233996) 0.80 % LYMPH % (test code = 736-9) 33.7 % MONO % (test code = 5905-5) 8.7 % EOS % (test code = 713-8) 2.9 % BASO % (test code = 706-2) 0.6 % GRAN MAT x10^3(ANC) (test code = 2669939751) 3.30 10*3/uL 1.88-7.09 IMM GRAN x10^3 (test code = 6703125991) 0.05 10*3/uL 0.00-0.06 LYMPH x10^3 (test code = 731-0) 2.09 10*3/uL 1.32-3.29 MONO x10^3 (test code = 742-7) 0.54 10*3/uL 0.33-0.92 EOS x10^3 (test code = 711-2) 0.18 10*3/uL 0.03-0.39 BASO x10^3 (test code = 704-7) 0.04 10*3/uL 0.01-0.07 Lab Interpretation (test code = 68054-1) Abnormal [facility]"
--- NOTE | 2024-03-19 11:34 | RAD REPORT ---
EXAMINATION: CT HEAD WITHOUT CONTRAST CLINICAL INDICATION: Female, 64 years old.SYNCOPE TECHNIQUE: Axial CT images from the skull base to the vertex without intravenous contrast. Coronal an d sagittal reformatted images were created from the data set. One or more of the following dose reduction techniques were used: Automated exposure control, adjustment of the mA and/or kV according to patient size, and/or iterative reconstruction. Unless otherwise specified, incidental findings do not require dedicated imaging follow-up. [id number]. COMPARISON: No prior exam. FINDINGS: INTRACRANIAL: No acute intracranial hemorrhage. Hydrocephalus is present. . There is a partially calc ified intracranial mass which may arise from the sphenoid bone at midline measuring 3.1 x 3.2 x 4 cm. Portions of the mass jut into the superior aspect of the sella though a partially empty sella is present. The mass sits at the midline between the right and left frontal lobes. No midline shift. There is right frontal lobe white matter hypoattenuation which may reflect vasogenic edema. VASCULATURE: No visualized abnormalities in the arteries or dural venous sinuses. SCALP/SKULL: No significant soft tissue or osseous abnormalities. SINUSES: Mild paranasal sinus thickening. Trace mastoid fluid. IMPRESSION: Partially calcified intracranial mass which may arise from the sphenoid bone. Ventriculomegaly concer sima for hydrocephalus. Right frontal lobe hypoattenuation concerning for vasogenic edema. The differential includes metastatic disease, chondrosarcoma, among others. Recommend neurosurgical consu ltation. Conveyed to Dr. Gutierrez by Dr. Walter at 1130 on 03/19/24
--- NOTE | 2024-03-19 11:36 | RAD REPORT ---
EXAM: Chest Single View HISTORY: syncope COMPARISON: None. FINDINGS: LUNGS/PLEURA: Low lung volumes. This is intrapulmonary vasculature. MEDIASTINUM: The mediastinal silhouette is within normal limits. CARDIAC: Enlarged cardiac silhouette which may be exaggerated by low lung volumes. UPPER ABDOMEN: No significant abnormality. BONES: No acute fracture. LINES/TUBES/OTHER: N/A IMPRESSION: Limited by low lung volumes. Vascular prominence could reflect either vascular congestion or low lung volumes and portable technique.
[2024-03-19 12:01] LABS: PT Prothrombin Time 12.8 SECONDS (9.4-12.5); PTT, Activated Partial Thromb 24.1 SECONDS (24.3-36.9); Protime INR 1.15
[2024-03-19] MEDS ORDERED: dexAMETHasone 10 MG/ML VIAL ONE (12:01)
--- NOTE | 2024-03-19 12:14 | ER ---
Nurse's Notes [facility] Name: Maren Saleh Age: 64 yrs Sex: Female : 1960 Arrival Date: 03/19/2024 Time: 10:40 Bed 5 Private MD: Diagnosis: Brain tumor;Hydrocephalus Presentation: 03/19 10:55 Chief complaint: EMS states: they were called for patient's family reporting worsening ap3 leaning to the right for a month and increased weakness over this time as well. Coronavirus screen: At this time, the client does not indicate any symptoms associated with coronavirus-19. Ebola Screen: No symptoms or risks identified at this time. Initial Sepsis Screen: Does the patient meet any 2 criteria? HR > 90 bpm. Does the patient have a suspected source of infection? No. Patient's initial sepsis screen is negative. Risk Assessment: Do you want to hurt yourself or someone else? Patient reports no desire to harm self or others. Onset of symptoms is unknown. 10:55 Method Of Arrival: EMS: [facility] ap3 10:55 Acuity: SEAN 3 ap3 Triage Assessment: 10:58 General: Appears in no apparent distress. Behavior is calm, cooperative. Pain: Denies ap3 pain. Neuro: Level of Consciousness is awake, alert, obeys commands, Oriented to person, place, time, situation, Appropriate for age Home Specialist are equal bilaterally Speech is normal. Neuro: Reports weakness in generalized weakness. Cardiovascular: Patient's skin is warm and dry. Respiratory: Airway is patent Respiratory effort is even, unlabored, Respiratory pattern is regular, symmetrical. Historical: - Allergies: 10:57 peanut; ap3 10:57 SHELLFISH; ap3 - PMHx: 10:57 Hypertension; Gout; Hypercholesterolemia; ap3 - Immunization history:: Adult Immunizations up to date, Pneumococcal vaccine is up to date, Flu vaccine is up to date. - Infectious Disease History:: Denies. - Social history:: Smoking status: Patient denies any tobacco usage or history of. Screenin:59 Abuse screen: Denies threats or abuse. Nutritional screening: No deficits noted. ap3 Tuberculosis screening: No symptoms or risk factors identified. 12:00 [facility] ED Fall Risk Assessment (Adult) History of falling in the last 3 months, bp including since admission No falls in past 3 months (0 pts) Confusion or Disorientation Yes (5 pts) Intoxicated or Sedated No (0 pts) Impaired Gait No (0 pts) Mobility Assist Device Used No (0 pt) Altered Elimination No (0 pt) Score/Fall Risk Level 3 or more points = High Risk Oriented to surroundings, Maintained a safe environment. Assessment: 11:00 General: Appears in no apparent distress. comfortable, Behavior is calm, cooperative. bp Pain: Denies pain. 12:00 Neuro: Level of Consciousness is awake, obeys commands, confused, Weakness in right. bp Vital Signs: 10:55 BP 129 / 66; Pulse 105; Resp 18; Temp 97.8(TE); Pulse Ox 97% on R/A; ap3 11:59 BP 145 / 100; Pulse 97; Resp 17; Pulse Ox 97% ; Weight 129.27 kg; bp 13:29 BP 136 / 94; Pulse 96; Resp 16; Pulse Ox 97% ; bp ED Course: 10:55 Patient arrived in ED. ms3 10:55 Noah Gutierrez DO is Attending Physician. ms3 10:55 Mela Alonso, ELLEN is Primary Nurse. ap3 10:57 Triage completed. ap3 11:00 Patient has correct armband on for positive identification. Bed in low position. Call ap3 light in reach. Side rails up X2. Adult w/ patient. Provided Education on: call light education. Client placed on continuous cardiac and pulse oximetry monitoring. NIBP monitoring applied. ekg monitor on. Pulse ox on. NIBP on. 11:00 Arm band placed on right wrist. ap3 11:00 EKG done, by ED staff, reviewed by Noah Gutierrez DO. ap3 11:15 Initial lab(s) drawn, by ia, sent to lab. First set of blood cultures drawn by me, bp Second set of blood cultures drawn by ia. 11:17 Inserted saline lock: 20 gauge in left antecubital area, using aseptic technique. Blood bp collected. Flushed with 10 mL NS. 11:19 CT Head Brain wo Cont In Process Unspecified. EDMS 11:30 Chest Single View XRAY In Process Unspecified. EDMS 12:10 Primary Nurse role handed off by Mela Alonso, RN bp 12:10 Cosmo Hendrix, RN is Primary Nurse. bp 12:11 Cosmo Hendrix, RN is Primary Nurse. bp 12:[address] [facility], pt denied due to not having capacity per Meredith. bd 12:23 initiated transfer to [facility]. bd 12:25 Lab(s) recollected, by me, sent to lab. bc6 Administered Medications: 12:09 Drug: Decadron - Dexamethasone IVP 10 mg IVP once Route: IVP; Site: left antecubital; bp 12:12 Follow up: Response: No adverse reaction bp 13:15 Drug: Keppra IV 20 mg/kg IV at calculated rate once; not to exceed 2,500 milligrams bp administer over 15 minutes Route: IV; Rate: calculated rate; Site: left antecubital; 14:26 Follow up: IV Status: Completed infusion bp Medication: 11:01 VIS not applicable for this client. ap3 Outcome: 12:14 ER care complete, transfer ordered by ms3 14:26 Patient left the ED. bp Signatures: Dispatcher [employer] EDMS Didi Zelaya bd Cosmo Hendrix, RN RN bp Mela Alonso RN RN ap3 Noah Gutierrez DO DO ms3 Rowan Linda bc6 Corrections: (The following items were deleted from the chart) 12:40 11:59 BP 145 / 100; Pulse 97bpm; Resp 17bpm; Pulse Ox 97%; bp bp
--- NOTE | 2024-03-19 12:14 | EDPHYS ---
Physician Documentation [facility] Name: Maren Saleh Age: 64 yrs Sex: Female : 1960 Arrival Date: 03/19/2024 Time: 10:40 Bed 5 Private MD: ED Physician Noah Gutierrez HPI: 03/19 11:22 This 64 yrs old Black Female presents to ER via EMS with complaints of General Weakness.ms3 11:22 Maren Saleh is a 64-year-old female presenting to the emergency department via [address] EMS status post syncopal episode at the [facility] [[email or web address]] cardiology office. Family states patient was unresponsive for 10 to 15 minutes. Patient's heart rate was also noted to be elevated. Patient denies chest pain, shortness of breath, nausea, vomiting. Patient's family notes patient has been leaning to 1 side for the previous month.. Historical: - Allergies: 10:57 peanut; ap3 10:57 SHELLFISH; ap3 - PMHx: 10:57 Hypertension; Gout; Hypercholesterolemia; ap3 - Immunization history:: Adult Immunizations up to date, Pneumococcal vaccine is up to date, Flu vaccine is up to date. - Infectious Disease History:: Denies. - Social history:: Smoking status: Patient denies any tobacco usage or history of. ROS: 11:22 Constitutional: Negative for fever, and chills. Cardiovascular: Negative for chest ms3 pain, and palpitations. Respiratory: Negative for shortness of breath, cough, wheezing, and pleuritic chest pain, Abdomen/GI: Negative for abdominal pain, nausea, vomiting, diarrhea, and constipation, MS/Extremity: Negative for injury and deformity, Skin: Negative for injury, rash, and discoloration, 11:22 Neuro: Positive for syncope, Exam: 11:22 Constitutional: This is a well developed, well nourished patient who is awake, alert, ms3 and in no acute distress. Head/Face: Normocephalic, atraumatic. Neck: Trachea midline, no cervical lymphadenopathy. Supple, full range of motion without nuchal rigidity, or vertebral point tenderness. No Meningismus. Chest/axilla: Normal chest wall appearance and motion. Nontender with no deformity. Cardiovascular: Regular rate and rhythm with a normal S1 and S2. No gallops, murmurs, or rubs. Normal PMI, no JVD. No pulse deficits. Respiratory: Lungs have equal breath sounds bilaterally, clear to auscultation and percussion. No rales, rhonchi or wheezes noted. No increased work of breathing, no retractions or nasal flaring. Abdomen/GI: Soft, non-tender, with normal bowel sounds. No distension or tympany. No guarding or rebound. No evidence of tenderness throughout. Skin: Warm, dry with normal turgor. Normal color with no rashes, no lesions, and no evidence of cellulitis. 12:03 ECG was reviewed by the Attending Physician. ms3 Vital Signs: 10:55 BP 129 / 66; Pulse 105; Resp 18; Temp 97.8(TE); Pulse Ox 97% on R/A; ap3 11:59 BP 145 / 100; Pulse 97; Resp 17; Pulse Ox 97% ; Weight 129.27 kg; bp 13:29 BP 136 / 94; Pulse 96; Resp 16; Pulse Ox 97% ; bp MDM: 10:57 Medical Screening Exam initiated ms3 11:22 Differential Diagnosis: cardiac arrhythmia, idiopathic syncope, vasovagal episode. ms3 11:59 ED course: Discussed CT head findings with patient and her family. 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 Patient unable not wanting to move UEs or LEs secondary to pain from arthritis.. 12:37 Data reviewed: vital signs, nurses notes, lab test result(s), EKG, radiologic studies, ms3 and as a result, I will transfer for NSGY. Consideration of Admission/Observation Patient transferred for NSGY. Management of patient was discussed with the following: Discussed case with Dr Humphrey at [facility] [[email or web address] I considered the following discharge prescriptions or medication management in the emergency department Medications were administered in the Emergency Department. See MAR. Historians other than the Patient: EMS: [facility]. Care significantly affected by the following chronic conditions: Hypertension, HLD. Counseling: I had a detailed discussion with the patient and/or guardian regarding the historical points, exam findings, and any diagnostic results supporting the discharge/admit diagnosis, lab results, radiology results, the need to transfer to another facility, for higher level of care. ED course: No beds available in the [facility] per transfer center. Discussed case with Dr Humphrey at [facility] [[email or web address]] and he accepts patient to [facility] [[email or web address]] ICU. . 03/19 10:58 Order name: Blood Culture Adult (2) ms3 03/19 10:58 Order name: CBC with Diff ms3 03/19 10:58 Order name: CMP; Complete Time: 12:26 ms3 03/19 10:58 Order name: Lactate w/ 2H reflex if indic.; Complete Time: 11:52 ms3 03/19 10:58 Order name: Protime (+inr); Complete Time: 12:24 ms3 03/19 10:58 Order name: Ptt, Activated; Complete Time: 12:24 ms3 03/19 10:58 Order name: Troponin High Sensitivity; Complete Time: 12:26 ms3 03/19 11:51 Order name: Ghost Lactate-NO COLLECT Timer EDMS 03/19 10:58 Order name: Chest Single View XRAY; Complete Time: 11:52 ms3 03/19 10:58 Order name: CT Head Brain wo Cont; Complete Time: 11:52 ms3 03/19 10:58 Order name: EKG; Complete Time: 10:59 ms3 03/19 10:58 Order name: Accucheck; Complete Time: 11:17 ms3 03/19 10:58 Order name: Cardiac monitoring; Complete Time: 11:00 ms3 03/19 10:58 Order name: EKG - Nurse/Tech; Complete Time: 11:00 ms3 03/19 10:58 Order name: IV Saline Lock - Large Bore; Complete Time: 11:17 ms3 03/19 10:58 Order name: Labs collected and sent; Complete Time: 11:17 ms3 03/19 10:58 Order name: O2 Per Protocol; Complete Time: 11:00 ms3 03/19 10:58 Order name: O2 Sat Monitoring; Complete Time: 11:00 ms3 03/19 10:58 Order name: Vital Signs; Complete Time: 11:01 ms3 03/19 11:32 Order name: Labs - recollect needed: recollect green lavender bllue top; Complete Time: bd 11:48 03/19 12:10 Order name: Labs - recollect needed: recollect purple top; Complete Time: 12:25 bd EC:03 Rate is 105 beats/min. Rhythm is regular. Left axis deviation noted. AL interval is ms3 normal. Clinical impression: NSR w/ Non-specific ST/T Changes and bifasicular block. Interpreted by me. Reviewed by me. Administered Medications: 12:09 Drug: Decadron - Dexamethasone IVP 10 mg IVP once Route: IVP; Site: left antecubital; bp 12:12 Follow up: Response: No adverse reaction bp 13:15 Drug: Keppra IV 20 mg/kg IV at calculated rate once; not to exceed 2,500 milligrams bp administer over 15 minutes Route: IV; Rate: calculated rate; Site: left antecubital; 14:26 Follow up: IV Status: Completed infusion bp Disposition Summary: 03/19/24 12:14 Transfer Ordered Notes: Reason: Higher level of care ms3 Condition: Stable ms3 Problem: new ms3 Symptoms: are unchanged ms3 Transfer Location: [facility](03/19/24 12:28) ms3 Accepting Physician: (03/19/24 14:26) bp Diagnosis - Brain tumor ms3 - Hydrocephalus ms3 Forms: - Medication Reconciliation Form ms3 - SBAR form ms3 Critical care time excluding procedures: 12:40 Critical care time: Bedside Care: 30 minutes, Consultation: 5 minutes, Family ms3 Intervention: 5 minutes. Total time: 40 minutes Signatures: Dispatcher [employer] EDDidi Bertrand Brian, RN RN bp Mela Alonso RN RN ap3 Noah Gutierrez DO DO ms3 Corrections: (The following items were deleted from the chart) 12: 12:14 ms3 ms3 12:28 12:14 [facility] ms3 ms3 14: 12:28 ms3 bp
[2024-03-19 12:23] LABS: Albumin 3.7 g/dL (3.4-5.0); Albumin/Globulin Ratio 0.7 (1.1-1.8); Anion Gap 13.5 mEq/L (5.0-15.0); Bilirubin Total 0.5 mg/dL (0.2-1.0); Globulin 5.1 g/dL (2.3-3.5); Protein, Total 8.8 g/dL (6.4-8.2); Troponin High Sensitivity 19.1 pg/mL (<58.9)
[2024-03-19 12:24] LABS: Potassium 3.5 mEq/L (3.5-5.1)
[2024-03-19 12:33] LABS: Absolute Basophils 0.1 K/uL (0-0.5); Absolute Eosinophils 0.1 K/uL (0-0.5); Absolute Lymphocytes (CBC) 1.3 K/uL (0.7-4.9); Absolute Monocytes 0.6 K/uL (0.1-1.3); Absolute Neutrophil 6.4 K/uL (1.8-8.0); Basophils % 0.7 % (0-1.3); Eosinophils % 1.5 % (0-4.4); Hematocrit 40.7 % (36.0-45.0); Hemoglobin 13.3 g/dL (12.0-15.0); Lymphocytes % 15.2 % (15.3-44.8); MCH 30.2 pg (27.0-35.0); MCHC 32.6 g/dL (32.0-36.0); MCV 92.8 fL (80-100); MPV 8.9 fL (7.6-11.3); Monocytes % 7.1 % (3.3-12.3); Neutrophils % 75.5 % (41.7-73.7); Platelets 235 thou/uL (152-406); RBC Red Blood Cell Count 4.38 M/uL (3.86-4.86); Red Cell Distribution Width 12.9 % (12.1-15.2)
[2024-03-19] MEDS ORDERED: NA CHLORIDE 0.9% IV ONE (12:45)
[2024-03-19] MEDS ORDERED: LEVETIRACETAM IV ONE (12:45)
[2024-03-19 14:33] VITALS: TEMP 97.8; O2SAT 97
[2024-03-19 14:36] VITALS: BP 136/94
--- NOTE | 2024-03-21 15:52 | EKG ---
Test Date: 2024-03-19 Test Time: 10:52:15 Quill Worker: ALP MEASUREMENT RESULTS: Intervals: Rate: 105 MS: 158 QRSD: 126 QT: 368 QTc: 486 Talent: P: 53 MS: 158 QRS: -62 T: 86 INTERPRETIVE STATEMENTS: Sinus tachycardia Right bundle branch block Left anterior fascicular block Bifascicular block Left ventricular hypertrophy with repolarization abnormality Cannot rule out Septal infarct, age undetermined Abnormal ECG No previous ECG available for comparison Electronically Signed On 03-21-24 15:48:50 MANAGING DIRECTOR ATLAS by Cricket Rosario
== END 2024-03-19 14:26 | disposition short-term general hospital (02) ==
LOC: ER 10:40
DX: G93.9 Disorder of brain, unspecified (principal); G91.9 Hydrocephalus, unspecified; I10 Essential (primary) hypertension; E78.00 Pure hypercholesterolemia, unspecified
CPT/HCPCS: 96365; 93005; 87040 ×2; 85025; 36415; 85610; 83605; 85730; 84484; 80053; 70450; 71045; 96375; 99285; J1953; J1100